=== PATIENT | female | born 1965 | race Caucasian/White ===

== ENCOUNTER 2020-01-24 19:44 | Outpatient (CLI) | payer OTHER | END 2020-01-24 19:45 | disposition home or self-care (01) | LOC: COV 19:44 | PROVIDERS: ATTEND Family Medicine | DX: Z20.828 Contact with and (suspected) exposure to other viral communicable diseases (principal) ==

== ENCOUNTER 2022-12-11 11:20 | Emergency (ER) | payer OTHER ==
[2022-12-11 11:35] VITALS: BP 163/84; O2SAT 96
--- NOTE | 2022-12-11 11:52 | ED Physician Documentation ---
History of Present Illness - Stated complaint Stated Complaint: NEEDS EKG - Chief complaint Chief Complaint: General - Additonal information Additional information: Here requesting an EKG in anticipation of a knee surgery scheduled for 2022. Denying any chest pain, shortness of air otherwise. Patient does have a history of hypertension on losartan and hydrochlorothiazide. Reports her PCP did not have an ECG in office thus she presents here to obtain ECG in order to be able to have surgery as already scheduled. Review of Systems Constitutional: reports: Reviewed and negative Cardiac: reports: Reviewed and negative Respiratory: reports: Reviewed and negative Musculoskeletal: reports: Joint pain (kne pain) PD PAST MEDICAL HISTORY - Past Surgical History Past Surgical History: No - Present Medications Home Medications: Ambulatory Orders Medication Instructions Recorded Confirmed Nitrofurantoin Monohyd/M-Cryst 100 mg PO BID #14 capsule 10/22/12 [Macrobid 100 mg Capsule] - Allergies Allergies/Adverse Reactions: Allergies Allergy/AdvReac Type Severity Reaction Status Date / Time Penicillins Allergy Mild Hives Verified 10/22/12 20:34 - Social History Does the pt smoke?: No Smoking Status: Never smoker Does the pt drink ETOH?: Yes Does the pt have substance abuse?: No - Immunizations Immunizations are current?: Yes - POLST Patient has POLST: No PD ED PE NORMAL - General General: Alert and oriented X 3, No acute distress - Cardiac Cardiac: RRR, No murmur - Respiratory Respiratory: No respiratory distress, Clear bilaterally Results - Vitals Vitals: Vital Signs - 24 hr 12/11/22 11:30 Temperature 37 C Heart Rate 76 Respiratory 20 Rate Blood Pressure 163/84 H O2 Saturation 96 Oxygen O2 Source Room air - EKG (time done) 1140 EKG releavant findings:: EKG personally interpreted by author of this note. Relevant findings are: Rate: Rate (enter#) (65) Rhythm: NSR [place]: Normal Intervals: Normal FL. No: Prolonged QT QRS: Low voltage Ischemia: Normal ST segments Compare to prior EKG: Old EKG unavailable Computer interpretation: Agree with computer PD Medical Decision Making - ED course Complexity details: d/w patient ED course: 57-year-old female has a history of hypertension presents emergency department requesting EKG in order to complete medical screening exams necessary to clear her for surgery on the of her right knee. EKG completed today per my interpretation nonischemic. Patient was given a copy of the EKG to share with her PCP who is providing final clearance for surgery. No other complaints or concerns today Departure - Departure Disposition: Home, Self Care Clinical Impression: Encounter for electrocardiogram Condition: Stable Comments: Kendra we did complete a twelve-lead EKG which per my interpretation does not have any findings to suggest ischemia. Please show this EKG to your primary care doctor in order to complete the clearance needed for surgery on the . Forms: PCP List
== END 2022-12-11 12:09 | disposition home or self-care (01) ==
LOC: ED 11:20
DX: Z01.810 Encounter for preprocedural cardiovascular examination (principal); I10 Essential (primary) hypertension; Z79.899 Other long term (current) drug therapy; Z13.83 Encounter for screening for respiratory disorder NEC
CPT/HCPCS: 87640; 93005; 99283

== ENCOUNTER 2022-12-11 13:59 | Outpatient (CLI) | payer OTHER | END 2022-12-11 14:00 | disposition home or self-care (01) | LOC: LAB 13:59 | PROVIDERS: ATTEND Obstetrics & Gynecology | DX: Z13.83 Encounter for screening for respiratory disorder NEC (principal) | CPT/HCPCS: 87640 ==